=== PATIENT | male | born 1960 | race Caucasian/White ===

== ENCOUNTER 2016-08-16 21:47 | Emergency (ER) | payer OTHER ==
[2016-08-16] MEDS ORDERED: DEXAMETHASONE 10 MG/ML VIAL PO STA (22:38)
[2016-08-16] MEDS ORDERED: AZITHROMYCIN 250 MG TABLET PO STA (22:38)
[2016-08-16] MEDS ORDERED: DEXAMETHASONE 10 MG/ML VIAL ONE (22:43)
[2016-08-16] MEDS ORDERED: CHERRY SYRUP 10 ML UDC PO ONE (22:43)
[2016-08-16] MEDS ORDERED: AZITHROMYCIN 250 MG TABLET PO ONE (22:43)
== END 2016-08-16 23:11 | disposition home or self-care (01) ==
DX: H66.92 Otitis media, unspecified, left ear (principal); Z87.11 Personal history of peptic ulcer disease
CPT/HCPCS: 99283; A9270

== ENCOUNTER 2016-09-03 08:00 | Outpatient (CLI) | payer OTHER | END 2016-09-03 08:01 | disposition home or self-care (01) | DX: R11.2 Nausea with vomiting, unspecified (principal) ==

== ENCOUNTER 2016-12-21 14:46 | Outpatient (CLI) | payer OTHER | END 2016-12-21 14:47 | disposition home or self-care (01) | LOC: LAB.WCP 14:46 | PROVIDERS: ATTEND Family Medicine | DX: L03.019 Cellulitis of unspecified finger (principal) | CPT/HCPCS: 87070; 87077; 87205 ==

== ENCOUNTER 2018-07-25 15:35 | Emergency (ER) | payer OTHER ==
[2018-07-25 16:14] LABS: BASOPHILS % (AUTO) 0.3 %; EOSINOPHILS % (AUTO) 0.3 %; LYMPHOCYTES # (AUTO) 0.7 10^3/uL (1.5-3.5); LYMPHOCYTES % (AUTO) 5.6 %; MEAN CORPUSCULAR HEMOGLOBIN 27.3 pg (27.0-31.0); MEAN CORPUSCULAR HGB CONC 32.8 g/dL (32.0-36.0); MEAN CORPUSCULAR VOLUME 83.2 fL (80.0-94.0); MEAN PLATELET VOLUME 6.5 fL (7.4-11.4); MONOCYTES # (AUTO) 0.7 10^3/uL (0.0-1.0); MONOCYTES % (AUTO) 5.4 %; NEUTROPHILS # (AUTO) 11.7 10^3/uL (1.5-6.6); NEUTROPHILS % (AUTO) 88.4 %; PLT - PLATELET COUNT 389 10^3/uL (130-450); RED CELL DISTRIBUTION WIDTH 15.1 % (12.0-15.0); WHITE BLOOD COUNT 13.2 x10^3/uL (4.8-10.8)
--- NOTE | 2018-07-25 16:17 | ED Physician Documentation ---
PD HPI ABD PAIN - Stated complaint Stated Complaint: THROWING UP, FEVER - Chief complaint Chief Complaint: Abd Pain - History obtained from History obtained from: Patient - History of Present Illness Timing - onset: How many hours ago, Today Timing - duration: Hours Timing - details: Abrupt onset, Still present Quality: Aching, Other (feeling full with marked nausea and repetitive vomiting. Is burping and passing gas, but no stool today.). No: Cramping, Sharp Location: All over / everywhere, Periumbilical Improved by: Vomiting Worsened by: Eating Associated symptoms: Nausea, Vomiting, Loss of appetite. No: Fever, Hemate mesis, Diarrhea, Constipation, Chest pain, Near syncope / syncope Similar symptoms before: Has not had sx before Recently seen: Not recently seen Review of Systems Constitutional: reports: Myalgias. denies: Fever, Chills Nose: denies: Rhinorrhea / runny nose, Congestion Throat: denies: Sore throat Respiratory: denies: Cough GI: reports: Abdominal Swelling, Nausea, Vomiting. denies: Diarrhea, Hematemesis, Bloody / black stool : denies: Dysuria, Frequency Skin: denies: Rash Neurologic: reports: Generalized weakness. denies: Focal weakness, Numbness, Altered mental status, Headache, Head injury PD PAST MEDICAL HISTORY - Past Medical History Cardiovascular: None Respiratory: None Endocrine/Autoimmune: None GI: Ulcers : None HEENT: None Psych: None Musculoskeletal: Chronic back pain Derm: None - Past Surgical History Past Surgical History: Yes General: Colonoscopy HEENT: Tonsil/Adenoidectomy, Other - Present Medications Home Medications: Ambulatory Orders Medication Instructions Recorded Confirmed RX: Methocarbamol 500 mg PO QPM 01/15/15 08/16/16 Ondansetron Odt [Zofran] 4 mg TL Q6H PRN #10 tablet 07/25/18 - Allergies Allergies/Adverse Reactions: Allergies Allergy/AdvReac Type Severity Reaction Status Date / Time iodine Allergy Anaphylaxis Verified 07/25/18 15:52 shrimp Allergy Anaphylaxis Verified 07/25/18 15:52 promethazine HCl * AdvReac Severe Anaphylaxis Verified 07/25/18 15:52 [From Phenergan] - Social History Does the pt smoke?: No Smoking Status: Never smoker Does the pt drink ETOH?: Yes Does the pt have substance abuse?: No - Immunizations Immunizations are current?: Yes - POLST Patient has POLST: No PD ED PE NORMAL - Vitals Vital signs reviewed: Yes - General General: Alert and oriented X 3, Well developed/nourished, Other (seems uncomfortable due to nausea. Not in pain per se. ) - HEENT HEENT: Pharynx benign. No: Moist mucous membranes - Neck Neck: Supple, no meningeal sign, No adenopathy - Cardiac Cardiac: RRR, No murmur - Respiratory Respiratory: Clear bilaterally - Abdomen Abdomen: Soft, Non tender, No organomegaly. No: Normal bowel sounds (diminished), Non distended (some distended but not tense. No tenderness. ) Results - Vitals Vitals: Vital Signs - 24 hr 07/25/18 07/25/18 07/25/18 15:47 17:20 18:22 Temperature 36.3 C L 37.1 C Heart Rate 81 82 77 Respiratory 18 15 15 Rate Blood Pressure 154/100 H 153/82 H 152/82 H O2 Saturation 98 95 98 Oxygen O2 Source Room air - Labs Labs: Laboratory Tests 07/25/18 07/25/18 07/25/18 14:05 14:05 15:40 WBC 13.2 H RBC 5.50 Hgb 15.0 Hct 45.8 MCV 83.2 MCH 27.3 MCHC 32.8 RDW 15.1 H Plt Count 389 MPV 6.5 L Neut # (Auto) 11.7 H Lymph # (Auto) 0.7 L [place] # (Auto) 0.7 Eos # (Auto) 0.0 Baso # (Auto) 0.0 Absolute Nucleated RBC 0.00 Nucleated RBC % 0.0 Sodium 139 Potassium 4.0 Chloride 105 Carbon Dioxide 22 Anion Gap 12.0 BUN 17 Creatinine 0.9 Estimated GFR (MDRD) 86 L Glucose 112 H Calcium 9.8 Magnesium 2.2 Total Bilirubin 0.8 AST 23 ALT 25 Alkaline Phosphatase 63 Total Protein 8.3 H Albumin 4.5 Globulin 3.8 Albumin/Globulin Ratio 1.2 Lipase 34 PD MEDICAL DECISION MAKING - ED course Complexity details: re-evaluated patient (feeling improved with IV fluids and meds. Recheck abd without focal tenderness. ), considered differential (Seems likely viral GE or food related. He does have some distension but is not tense and is passing gas, so not acting like obstruction and is not focally tender such as diverticulitis or such. ), d/w patient Departure - Departure Disposition: 01 Home, Self Care Clinical Impression: Nausea & vomiting Qualifiers: Vomiting type: unspecified Vomiting Intractability: non-intractable Qualified Code(s): R11.2 - Nausea with vomiting, unspecified Condition: Stable Record reviewed to determine appropriate education?: Yes Instructions: ED Nausea Vomiting Follow-Up: Perico Lindo DO [Primary Care Provider] - Prescriptions: Ondansetron Odt [Zofran] 4 mg TL Q6H PRN #10 tablet PRN Reason: Nausea / Vomiting Comments: Symptoms like this are most commonly a brief viral illness though sometimes are food related. It does not seem mechanical like a bowel obstruction or such. At this point rest at home with small frequent fluids and bland food. Ondansetron every 4-6 hours if needed for nausea. Recheck if not improved over the next day or so return sooner if worsening symptoms again or if you have other symptoms such as significant pain, bloody stool, high fevers, other concerns. Discharge Date/Time: 07/25/18 18:46
[2018-07-25] MEDS ORDERED: SODIUM CHLORIDE 0.9% 1,000 ML IV ONE ×2 (16:27→17:30)
[2018-07-25] MEDS ORDERED: KETOROLAC 30 MG/ML VIAL IVP STA (16:27)
[2018-07-25] MEDS ORDERED: ONDANSETRON 4 MG/2 ML VIAL IVP STA ×2 (16:27→17:30)
[2018-07-25 17:00] LABS: ALBUMIN 4.5 g/dL (3.2-5.5); ALBUMIN/GLOBULIN RATIO 1.2 (1.0-2.2); BILIRUBIN,TOTAL 0.8 mg/dL (0.2-1.0); CALCIUM 9.8 mg/dL (8.5-10.3); CREATININE 0.9 mg/dL (0.6-1.2); TOTAL PROTEIN 8.3 g/dL (6.7-8.2)
[2018-07-25 18:23] VITALS: BP 152/82
== END 2018-07-25 18:46 | disposition home or self-care (01) ==
LOC: ED 15:35
DX: R11.2 Nausea with vomiting, unspecified (principal); R14.0 Abdominal distension (gaseous); R10.33 Periumbilical pain
CPT/HCPCS: 36415; 80053; 83690; 83735; 85025; 96361; 96374; 96375; 99283

== ENCOUNTER 2019-02-01 16:45 | Outpatient (CLI) | payer OTHER | END 2019-02-01 16:46 | disposition critical access hospital (66) | LOC: EMS 16:45 | PROVIDERS: ATTEND Surgery | DX: R50.9 Fever, unspecified (principal); R25.9 Unspecified abnormal involuntary movements; R10.9 Unspecified abdominal pain | CPT/HCPCS: A0425; A0427 ==

== ENCOUNTER 2019-02-01 16:59 | Emergency (ER) | payer OTHER ==
[2019-02-01 17:32] LABS: BASOPHILS # (AUTO) 0.1 10^3/uL (0.0-0.1); BASOPHILS % (AUTO) 0.5 %; EOSINOPHILS # (AUTO) 0.1 10^3/uL (0.0-0.7); EOSINOPHILS % (AUTO) 0.4 %; HGB - HEMOGLOBIN 13.7 g/dL (14.0-18.0); LYMPHOCYTES # (AUTO) 0.5 10^3/uL (1.5-3.5); MEAN CORPUSCULAR HEMOGLOBIN 27.6 pg (27.0-31.0); MEAN CORPUSCULAR HGB CONC 32.5 g/dL (32.0-36.0); MEAN CORPUSCULAR VOLUME 85.1 fL (80.0-94.0); MEAN PLATELET VOLUME 8.2 fL (7.4-11.4); MONOCYTES # (AUTO) 0.1 10^3/uL (0.0-1.0); MONOCYTES % (AUTO) 1.1 %; NEUTROPHILS # (AUTO) 11.6 10^3/uL (1.5-6.6); NEUTROPHILS % (AUTO) 93.5 %; PLT - PLATELET COUNT 264 10^3/uL (130-450); RED BLOOD COUNT 4.96 10^6/uL (4.70-6.10); RED CELL DISTRIBUTION WIDTH 14.6 % (12.0-15.0); WHITE BLOOD COUNT 12.4 x10^3/uL (4.8-10.8)
[2019-02-01] MEDS ORDERED: SODIUM CHLORIDE 0.9% 1,000 ML IV ONE (17:44)
[2019-02-01 17:47] LABS: BILIRUBIN,URINE NEGATIVE (NEGATIVE); CLARITY,URINE CLEAR (CLEAR); GLUCOSE, URINE (UA) NEGATIVE (NEGATIVE); KETONES,URINE (UA) NEGATIVE (NEGATIVE); LEUKOCYTE ESTERASE, URINE NEGATIVE (NEGATIVE); NITRITE,URINE NEGATIVE (NEGATIVE); OCCULT BLOOD,URINE TRACE-INTA (NEGATIVE); PROTEIN,URINE NEGATIVE (NEGATIVE); UROBILINOGEN,URINE 0.2 (NORMAL) E.U./dL (NORMAL)
--- NOTE | 2019-02-01 17:47 | ED Physician Documentation ---
PD HPI ABD PAIN - Stated complaint Stated Complaint: ABD PX - Chief complaint Chief Complaint: Abd Pain - History obtained from History obtained from: Patient, Family, EMS - History of Present Illness Timing - onset: How many days ago (3) Timing - duration: Days (3) Timing - details: Gradual onset Pain level max: 6 Pain level now: 3 Quality: Aching, Pain Location: LLQ Improved by: Other (Nothing) Worsened by: Moving, Palpation Associated symptoms: Nausea. No: Fever, Vomiting, Hematemesis, Diarrhea, Constipation, Melena, Hematochezia, Dysuria Similar symptoms before: Diagnosis (Diverticulitis) Recently seen: Not recently seen Review of Systems Ten Systems: 10 systems reviewed and negative Constitutional: denies: Fever, Chills Throat: denies: Sore throat Respiratory: denies: Cough GI: denies: Vomiting, Diarrhea Skin: denies: Rash Musculoskeletal: denies: Neck pain, Back pain Neurologic: denies: Headache PD PAST MEDICAL HISTORY - Past Medical History Cardiovascular: None Respiratory: None Endocrine/Autoimmune: None GI: Ulcers : None HEENT: None Psych: None Musculoskeletal: Chronic back pain Derm: None - Past Surgical History Past Surgical History: Yes General: Colonoscopy HEENT: Tonsil/Adenoidectomy, Other - Present Medications Home Medications: Ambulatory Orders Medication Instructions Recorded Confirmed Methocarbamol 500 mg PO QPM 01/15/15 08/16/16 Ondansetron Odt [Zofran] 4 mg TL Q6H PRN #10 tablet 07/25/18 Amox/Clav 875/125 [Augmentin] 1 each PO Q8H #30 tablet 02/01/19 - Allergies Allergies/Adverse Reactions: Allergies Allergy/AdvReac Type Severity Reaction Status Date / Time iodine Allergy Anaphylaxis Verified 02/01/19 17:11 shrimp Allergy Anaphylaxis Verified 02/01/19 17:11 promethazine HCl * AdvReac Severe Anaphylaxis Verified 02/01/19 17:11 [From Phenergan] - Social History Does the pt smoke?: No Smoking Status: Never smoker Does the pt drink ETOH?: Yes Does the pt have substance abuse?: No - Immunizations Immunizations are current?: Yes - POLST Patient has POLST: No PD ED PE NORMAL - Vitals Vital signs reviewed: Yes - General General: Alert and oriented X 3, No acute distress, Well developed/nourished - HEENT HEENT: Moist mucous membranes - Neck Neck: Supple, no meningeal sign - Cardiac Cardiac: RRR, Strong equal pulses - Respiratory Respiratory: No respiratory distress, Clear bilaterally - Abdomen Abdomen: Soft, Non distended, Other (Tender to palpation left lower quadrant without peritoneal signs) - Back Back: No spinal TTP - Derm Derm: Warm and dry - Extremities Extremities: No edema, No calf tenderness / cord - Neuro Neuro: Alert and oriented X 3 - Psych Psych: Normal mood, Normal affect Results - Vitals Vitals: Oxygen O2 Source Room air - Labs Labs: Laboratory Tests 02/01/19 02/01/19 02/01/19 17:27 17:27 17:37 WBC 12.4 H RBC 4.96 Hgb 13.7 L Hct 42.2 MCV 85.1 MCH 27.6 MCHC 32.5 RDW 14.6 Plt Count 264 MPV 8.2 Neut # (Auto) 11.6 H Lymph # (Auto) 0.5 L [place] # (Auto) 0.1 Eos # (Auto) 0.1 Baso # (Auto) 0.1 Absolute Nucleated RBC 0.00 Nucleated RBC % 0.0 Sodium 139 Potassium 3.7 Chloride 107 Carbon Dioxide 20 L Anion Gap 12.0 BUN 17 Creatinine 1.0 Estimated GFR (MDRD) 76 L Glucose 115 H Calcium 9.0 Total Bilirubin 0.7 AST 20 ALT 19 Alkaline Phosphatase 61 Total Protein 7.0 Albumin 3.8 Globulin 3.2 Albumin/Globulin Ratio 1.2 Lipase 27 Urine Color YELLOW Urine Clarity CLEAR Urine pH 7.0 Ur Specific [place] 1.015 Urine Protein NEGATIVE Urine Glucose (UA) NEGATIVE Urine Ketones NEGATIVE Urine Occult Blood TRACE-INTA Urine Nitrite NEGATIVE Urine Bilirubin NEGATIVE Urine Urobilinogen 0.2 (NORMAL) Ur Leukocyte Esterase NEGATIVE Ur Microscopic Review NOT INDICATED Urine Culture Comments NOT INDICATED - Rads (name of study) ct abd/pelvis Radiology: Prelim report reviewed, EMP read contemporaneously, See rad report (Mild diverticulitis involving the distal descending colon. No free fluid, free air or abscess. Consider posttreatment colonoscopy to exclude malignancy. Fatty liver and left renal cyst seen.) PD MEDICAL DECISION MAKING - ED course Complexity details: reviewed results, re-evaluated patient, considered differential, d/w patient, d/w family ED course: Patient with diverticulitis. No perforation or abscess. Will place on antibiotics and follow-up with his doctor for further care. Recommend a screening colonoscopy after completion of treatment. Patient counseled regard ing signs and symptoms for which I believe and urgent re-evaluation would be necessary. Patient with good understanding of and agreement to plan and is comfortable going home at this time This document was made in part using voice recognition software. While efforts are made to proofread this document, sound alike and grammatical errors may occur. Departure - Departure Disposition: 01 Home, Self Care Clinical Impression: Diverticulitis Condition: Good Instructions: ED Diverticulitis Follow-Up: Perico Lindo DO [Primary Care Provider] - Prescriptions: Amox/Clav 875/125 [Augmentin] 1 each PO Q8H #30 tablet Comments: Take all antibiotics until gone. Return if you worsen. Follow-up with your doctor for further care. Discharge Date/Time: 02/01/19 20:02
[2019-02-01 17:49] LABS: ALBUMIN 3.8 g/dL (3.2-5.5); ALBUMIN/GLOBULIN RATIO 1.2 (1.0-2.2); BILIRUBIN,TOTAL 0.7 mg/dL (0.2-1.0)
--- NOTE | 2019-02-01 18:57 | CT Report ---
Reason: LLQ abd pain Procedure Date: 02/01/2019 Accession Number: [id number] / [id number] Procedure: CT - Abdomen/Pelvis WO CPT Code: FULL RESULT: EXAM: CT ABDOMEN AND PELVIS (CT KUB) EXAM DATE: 02/01/2019 06:31 PM. CLINICAL HISTORY: Left lower quadrant pain. COMPARISONS: None. TECHNIQUE: Routine axial helical CT imaging was performed through the abdomen and pelvis without IV contrast. Reconstructions: Coronal and sagittal. In accordance with CT protocol optimization, one or more of the following dose reduction techniques were utilized for this exam: automated exposure control, adjustment of mA and/or KV based on patient size, or use of iterative reconstructive technique. FINDINGS: Lung Bases: Minor atelectasis or scarring is seen in the left lung base. Right Kidney/Ureter: No stones, hydronephrosis, or hydroureter. No perinephric fat stranding. Left Kidney/Ureter: No stones, hydronephrosis, or hydroureter. No perinephric fat stranding. 4.0 cm cortical cyst in the mid kidney is seen. Other Solid Organs: Noncontrast imaging of the solid organs demonstrates fatty change. Gallbladder/Bile Ducts: Unremarkable. Peritoneal Cavity: There is mild fat stranding seen in the left lower quadrant region involving the distal descending colon in association with diverticular disease consistent with diverticulitis. There is no free fluid, free air, or abscess. There is no obstruction or ileus. The appendix is normal. Pelvic Organs: No bladder stones or wall thickening. Noncontrast images of the visualized pelvic organs are unremarkable. Vasculature: Minor aortic calcification is seen. Normal caliber aorta is seen. Other: None. IMPRESSION: 1. Mild diverticulitis involving the distal descending colon. No free fluid, free air, or abscess. Consider posttreatment colonoscopy to exclude malignancy. 2. Fatty liver and left renal cyst seen. [facility]
[2019-02-01] MEDS ORDERED: AMOX/CLAV 875 MG/125 MG TABLET PO STA (19:35)
[2019-02-01] MEDS ORDERED: IBUPROFEN 800 MG TABLET PO STA (19:43)
[2019-02-01 19:56] VITALS: BP 131/61
== END 2019-02-01 20:02 | disposition home or self-care (01) ==
LOC: ED 16:59
DX: K57.32 Diverticulitis of large intestine without perforation or abscess without bleeding (principal)
CPT/HCPCS: 36415; 74176; 80053; 81003; 83690; 85025; 96360; 99284; A9270; 81001; 87086